=== PATIENT | female | born 1960 | race African-American/Black ===

== ENCOUNTER 2017-02-18 13:51 | Emergency (ER) | payer MEDICAID ==
[2017-02-18] MEDS ORDERED: IPRATROPIUM/ALBUTEROL 0.5-2.5 MG/3 ML AMPUL NEB ONE (14:24)
--- NOTE | 2017-02-18 14:26 | ER Document Report ---
ED Medical Screen (RME) - General Chief Complaint: Asthma Exacerbation Stated Complaint: POSSIBLE ASTHMA ATTACH Time Seen by Provider: 02/18/17 14:24 Notes: Patient says that she has been wheezing since yesterday. Says she developed a cough with some chest pains in the past day or 2. Also has had a sore throat. Fever yesterday. Has had chills as well. Patient has a history of asthma and uses an inhaler, but it ran out yesterday. She does have a cough productive of white phlegm. General body aches. Patient is a cigarette smoker. TRAVEL OUTSIDE OF THE [place] IN LAST 30 DAYS: No - Related Data Allergies/Adverse Reactions: Penicillins Allergy (Verified 02/18/17 14:05) Past Medical History - Social History Chew tobacco use (# tins/day): No Frequency of alcohol use: Occasional Drug Abuse: None Pulmonary Medical History: Reports: Hx Asthma, Hx Bronchitis Renal/ Medical History: Denies: Hx Peritoneal Dialysis Psychiatric Medical History: Reports: Hx Bipolar Disorder, Hx Depression, Hx Schizophrenia Traumatic Medical History: Reports: Hx Fractures - LEFT ELBOW Past Surgical History: Reports: Hx Orthopedic Surgery - Left elbow (pin placed) - Immunizations Hx Diphtheria, Pertussis, Tetanus Vaccination: Yes Physical Exam - Vital signs Vitals: Temp Pulse Resp Pulse Ox 97.7 F 102 H 18 98 02/18/17 14:05 02/18/17 14:05 02/18/17 14:05 02/18/17 14:05 Course - Vital Signs Vital signs: Temp Pulse Resp BP Pulse Ox 97.7 F 102 H 18 98 02/18/17 14:05 02/18/17 14:05 02/18/17 14:05 02/18/17 14:05
--- NOTE | 2017-02-18 15:21 | RADIOLOGY REPORT (SQ) ---
EXAM DESCRIPTION: CHEST PA/LAT COMPLETED DATE/TIME: 02/18/2017 2:59 pm REASON FOR STUDY: Cough, congestion, and wheezing COMPARISON: Chest films 09/21/2012, 05/07/2013 EXAM PARAMETERS: NUMBER OF VIEWS: two views TECHNIQUE: Digital Frontal and Lateral radiographic views of the chest acquired. RADIATION DOSE: NA LIMITATIONS: none FINDINGS: LUNGS AND PLEURA: Chronic lingular scarring or atelectasis. Lungs are otherwise well inflated and clear. No pleural effusion. No pneumothorax. MEDIASTINUM AND HILAR STRUCTURES: No masses or contour abnormalities. HEART AND VASCULAR STRUCTURES: Heart normal size. No evidence for failure. BONES: No acute findings. HARDWARE: None in the chest. OTHER: No other significant finding. IMPRESSION: Stable lingular scarring or atelectasis. TECHNICAL DOCUMENTATION: JOB ID: [id number] [email or web address]- All Rights Reserved
[2017-02-18] MEDS ORDERED: ALBUTEROL SULFATE 0.083% NEB 2.5 MG/3 ML AMPUL NEB ONE (15:39)
[2017-02-18] MEDS ORDERED: AZITHROMYCIN 250 MG TABLET PO ONE (16:13)
[2017-02-18] MEDS ORDERED: PREDNISONE 20 MG TABLET PO ONE (16:13)
[2017-02-18] MEDS ORDERED: ALBUTEROL SULFATE HFA (90 MCG/PUFF) 8 GM MDI (1 MDI/ER DISP) IH ONE (16:45)
--- NOTE | 2017-02-18 16:47 | ER Document Report ---
ED General - General Chief Complaint: Asthma Exacerbation Stated Complaint: POSSIBLE ASTHMA ATTACH Time Seen by Provider: 02/18/17 14:24 TRAVEL OUTSIDE OF THE [place] IN LAST 30 DAYS: No - HPI Patient complains to provider of: Shortness of breath Notes: Patient coming in for last few days shortness breath. Patient states she continues to smoke. Patient states he has a history of asthma. Denies any recent travel states productive sputum. Upon my evaluation patient received a breathing treatment in triage states that she still feels short of breath. Patient otherwise does not look to be in any respiratory distress upon my evaluation. - Related Data Allergies/Adverse Reactions: Penicillins Allergy (Verified 02/18/17 14:05) Past Medical History - Social History Smoking Status: Current Every Day Smoker Chew tobacco use (# tins/day): No Frequency of alcohol use: Occasional Drug Abuse: None Family History: Reviewed & Not Pertinent Patient has suicidal ideation: No Patient has homicidal ideation: No Pulmonary Medical History: Reports: Hx Asthma, Hx Bronchitis Renal/ Medical History: Denies: Hx Peritoneal Dialysis Psychiatric Medical History: Reports: Hx Bipolar Disorder, Hx Depression, Hx Schizophrenia Traumatic Medical History: Reports: Hx Fractures - LEFT ELBOW Past Surgical History: Reports: Hx Orthopedic Surgery - Left elbow (pin placed) - Immunizations Hx Diphtheria, Pertussis, Tetanus Vaccination: Yes Hx Pneumococcal Vaccination: 03/26/03 Review of Systems - Review of Systems Constitutional: No symptoms reported EENT: No symptoms reported Cardiovascular: No symptoms reported Respiratory: Cough, Short of breath, Wheezing Gastrointestinal: No symptoms reported Genitourinary: No symptoms reported Female Genitourinary: No symptoms reported Musculoskeletal: No symptoms reported Skin: No symptoms reported Hematologic/Lymphatic: No symptoms reported Neurological/Psychological: No symptoms reported -: Yes All other systems reviewed and negative Physical Exam - Vital signs Vitals: Temp Pulse Resp Pulse Ox 97.7 F 102 H 18 98 02/18/17 14:05 02/18/17 14:05 02/18/17 14:05 02/18/17 14:05 Interpretation: Normal - General General appearance: Appears well, Alert - HEENT Head: Normocephalic, Atraumatic Eyes: Normal Pupils: PERRL - Respiratory Respiratory status: No respiratory distress Chest status: Nontender Breath sounds: Rhonchi, Wheezing Chest palpation: Normal - Cardiovascular Rhythm: Regular Heart sounds: Normal auscultation Murmur: No - Abdominal Inspection: Normal Distension: No distension Bowel sounds: Normal Tenderness: Nontender Organomegaly: No organomegaly - Back Back: Normal, Nontender - Extremities General upper extremity: Normal inspection, Nontender, Normal color, Normal ROM , Normal temperature General lower extremity: Normal inspection, Nontender, Normal color, Normal ROM , Normal temperature, Normal weight bearing. No: Paola's sign - Neurological Neuro grossly intact: Yes Cognition: Normal Orientation: AAOx4 [place] Coma Scale Eye Opening: Spontaneous [place]ora Coma Scale Verbal: Oriented Dora Coma Scale Motor: Obeys Commands Dora Coma Scale Total: 15 Speech: Normal Motor strength normal: LUE, RUE, LLE, RLE Sensory: Normal - Psychological Associated symptoms: Normal affect, Normal mood - Skin Skin Temperature: Warm Skin Moisture: Dry Skin Color: Normal Course - Re-evaluation Re-evalutation: 02/18/17 18:41 Patient more likely has underlying bronchitis. Patient will be given Z-Garret steroids bronchodilators. Patient will be discharged on follow-up with primary care physician. At the last treatment patient states she does feel better and agrees and is pleased that she is be discharged home. - Vital Signs Vital signs: Temp Pulse Resp BP Pulse Ox 98.4 F 106 H 18 144/92 H 91 L 02/18/17 16:51 02/18/17 16:51 02/18/17 14:05 02/18/17 16:51 02/18/17 16:51 Discharge - Discharge Clinical Impression: Bronchitis Condition: Good Disposition: HOME, SELF-CARE Instructions: Bronchitis With Bronchospasm (Wheezing) (OM), Stop Smoking (OM) Additional Instructions: Use the inhaler that we gave you here in ER 2 puffs every 4 hours. Please take other medications as prescribed. He will not need any more steroids are antibiotics until tomorrow. Prescriptions: Albuterol Sulfate [Proair HFA] 1 - 2 puff IH Q4 PRN #1 inhaler PRN Reason: Azithromycin 250 mg PO DAILY #4 tablet Prednisone [Deltasone] 60 mg PO DAILY #24 tablet Forms: Smoking Cessation Education Referrals: ADAMA DÍAZ MD [Primary Care Provider] - Follow up as needed
[2017-02-18 16:53] VITALS: BP 144/92
== END 2017-02-18 16:56 | disposition home or self-care (01) ==
LOC: ER 13:51
DX: J40 Bronchitis, not specified as acute or chronic (principal); F17.200 Nicotine dependence, unspecified, uncomplicated; Z88.0 Allergy status to penicillin
CPT/HCPCS: 94640 ×2; 99285; 87804; 71020; Q0144; J7512; J3490; J7620

== ENCOUNTER 2017-02-20 13:54 | Emergency (ER) | payer MEDICAID ==
[2017-02-20] MEDS ORDERED: PREDNISONE 20 MG TABLET PO ONE (14:07)
[2017-02-20] MEDS ORDERED: ALBUTEROL SULFATE 0.083% NEB 2.5 MG/3 ML AMPUL NEB ONE (14:07)
--- NOTE | 2017-02-20 14:08 | ER Document Report ---
ED Medical Screen (RME) - General Chief Complaint: Shortness Of Breath Stated Complaint: DIFFICULTY BREATHING,CHEST CONGESTION Time Seen by Provider: 02/20/17 14:07 Notes: Patient states she was seen here 2 days ago. She states at that time a chest x- ray was done and a flu test were done. She states they were both unremarkable. She states she was given prescriptions but she does not have the money to fill them. She states she is currently feeling very short of breath. TRAVEL OUTSIDE OF THE [place] IN LAST 30 DAYS: No - Related Data Allergies/Adverse Reactions: Penicillins Allergy (Verified 02/20/17 13:57) Past Medical History - Social History Chew tobacco use (# tins/day): No Frequency of alcohol use: Occasional Drug Abuse: None Pulmonary Medical History: Reports: Hx Asthma, Hx Bronchitis Renal/ Medical History: Denies: Hx Peritoneal Dialysis Psychiatric Medical History: Reports: Hx Bipolar Disorder, Hx Depression, Hx Schizophrenia Traumatic Medical History: Reports: Hx Fractures - LEFT ELBOW Past Surgical History: Reports: Hx Orthopedic Surgery - Left elbow (pin placed) - Immunizations Hx Diphtheria, Pertussis, Tetanus Vaccination: Yes Physical Exam - Vital signs Vitals: Temp Pulse Resp BP Pulse Ox 97.3 F 88 32 H 115/79 97 02/20/17 13:57 02/20/17 13:57 02/20/17 13:57 02/20/17 13:57 02/20/17 13:57 Course - Vital Signs Vital signs: Temp Pulse Resp BP Pulse Ox 97.3 F 88 32 H 115/79 97 02/20/17 13:57 02/20/17 13:57 02/20/17 13:57 02/20/17 13:57 02/20/17 13:57
[2017-02-20] MEDS ORDERED: IPRATROPIUM/ALBUTEROL 0.5-2.5 MG/3 ML AMPUL NEB ONE (14:56)
[2017-02-20] MEDS ORDERED: DEXAMETHASONE SOD PHOS INJ 10 MG/1 ML VIAL IM ONE (15:00)
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
[2017-02-20] MEDS ORDERED: ALBUTEROL SULFATE HFA (90 MCG/PUFF) 8 GM MDI (1 MDI/ER DISP) IH SCH (15:45)
[2017-02-20 16:31] VITALS: BP 128/93
== END 2017-02-20 16:25 | disposition home or self-care (01) ==
LOC: ER 13:54
DX: J45.901 Unspecified asthma with (acute) exacerbation (principal); T38.0X6A Underdosing of glucocorticoids and synthetic analogues, initial encounter; Z91.120 Patient's intentional underdosing of medication regimen due to financial hardship; Z91.14 Patient's other noncompliance with medication regimen; F17.200 Nicotine dependence, unspecified, uncomplicated; R06.02 Shortness of breath; R05 Cough; Z88.0 Allergy status to penicillin
CPT/HCPCS: 94640 ×2; 99284; 96372; J7512; J1100; J3490; J7620

== ENCOUNTER 2017-07-13 10:27 | Emergency (ER) | payer OTHER, MEDICAID ==
[2017-07-13] MEDS ORDERED: DEXAMETHASONE SOD PHOS INJ 10 MG/1 ML VIAL IM ONE (11:17)
[2017-07-13] MEDS ORDERED: KETOROLAC TROMETHAMINE INJ/PF 30 MG/1 ML SDV IM ONE (11:17)
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
[2017-07-13 12:54] VITALS: BP 136/87
== END 2017-07-13 12:53 | disposition home or self-care (01) ==
LOC: ER 10:27
DX: S16.1XXA Strain of muscle, fascia and tendon at neck level, initial encounter (principal); M51.36 Other intervertebral disc degeneration, lumbar region; M50.30 Other cervical disc degeneration, unspecified cervical region; S09.90XA Unspecified injury of head, initial encounter; M54.9 Dorsalgia, unspecified; R51 Headache; V73.6XXA Passenger on bus injured in collision with car, pick-up truck or van in traffic accident, initial encounter; F17.210 Nicotine dependence, cigarettes, uncomplicated
CPT/HCPCS: 99406; 99284; 96372; 73564; 72110; 72070; 70450; 72125; J1885; J1100

== ENCOUNTER 2017-08-05 10:32 | Emergency (ER) | payer MEDICAID, OTHER ==
[2017-08-05 10:37] VITALS: BP 114/80
[2017-08-05] MEDS ORDERED: DEXAMETHASONE SOD PHOS INJ 10 MG/1 ML VIAL IM ONE (11:27)
[2017-08-05] MEDS ORDERED: KETOROLAC TROMETHAMINE INJ/PF 30 MG/1 ML SDV IM ONE (11:27)
--- NOTE | 2017-08-05 11:32 | ER Document Report ---
ED Extremity Problem, Lower - General Chief Complaint: Foot Pain Stated Complaint: FOOT PAIN Time Seen by Provider: 08/05/17 11:26 Mode of Arrival: Ambulatory Information source: Patient Notes: 57-year-old female presents to ED for complaint of pain and burning to both feet. She states she believes she has heel spurs in both feet. She states she has been to the form worker and they did nothing for her. She states she needs steroid shots in both feet. She denies history of diabetes or peripheral neuropathy. He is alert and oriented speaking in even clear voice is able to ambulate with a even steady gait. TRAVEL OUTSIDE OF THE [place] IN LAST 30 DAYS: No - HPI Patient complains to provider of: Pain Location: Foot Occurred: Other - Chronic getting worse Onset/Duration: Persistent Quality of pain: Burning, Sharp Severity: Severe Pain Level: 5 Recent injury: No Associated symptoms: Painful ambulation Exacerbated by: Movement, Walking Relieved by: Elevation, Rest - Related Data Allergies/Adverse Reactions: Penicillins Allergy (Verified 02/20/17 13:57) Past Medical History - General Information source: Patient - Social History Smoking Status: Current Every Day Smoker Cigarette use (# per day): Yes - One half pack per day Chew tobacco use (# tins/day): No Smoking Education Provided: Yes - 4 minutes Frequency of alcohol use: Occasional Drug Abuse: None 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 Lives with: Parents Family History: Reviewed & Not Pertinent Patient has suicidal ideation: No Patient has homicidal ideation: No Pulmonary Medical History: Reports: Hx Asthma, Hx Bronchitis EENT Medical History: Reports: None Neurological Medical History: Reports: None Endocrine Medical History: Reports: None Renal/ Medical History: Reports: None Malignancy Medical History: Reports: None GI Medical History: Reports: None Musculoskeltal Medical History: Reports Hx Arthritis, Reports Hx Musculoskeletal Deformity, Reports Hx Musculoskeletal Trauma Psychiatric Medical History: Reports: Hx Bipolar Disorder, Hx Depression, Hx Schizophrenia Traumatic Medical History: Reports: Hx Fractures - LEFT ELBOW Past Surgical History: Reports: Hx Orthopedic Surgery - Left elbow (pin placed) - Immunizations Hx Diphtheria, Pertussis, Tetanus Vaccination: Yes Hx Pneumococcal Vaccination: 03/26/03 Review of Systems - Review of Systems Constitutional: No symptoms reported EENT: No symptoms reported Cardiovascular: No symptoms reported Respiratory: No symptoms reported Gastrointestinal: No symptoms reported Genitourinary: No symptoms reported Female Genitourinary: No symptoms reported Musculoskeletal: Other - Bilateral feet pain burning sharp Skin: No symptoms reported Hematologic/Lymphatic: No symptoms reported Neurological/Psychological: No symptoms reported -: Yes All other systems reviewed and negative Physical Exam - Vital signs Vitals: Temp Pulse Resp BP Pulse Ox 98.3 F 98 20 114/80 97 08/05/17 10:37 08/05/17 10:37 08/05/17 10:37 08/05/17 10:37 08/05/17 10:37 Interpretation: Normal - General General appearance: Appears well, Alert - HEENT Head: Normocephalic, Atraumatic Eyes: Normal Pupils: PERRL - Respiratory Respiratory status: No respiratory distress Chest status: Nontender Breath sounds: Normal Chest palpation: Normal - Cardiovascular Rhythm: Regular Heart sounds: Normal auscultation Murmur: No - Abdominal Inspection: Normal Distension: No distension Bowel sounds: Normal Tenderness: Nontender Organomegaly: No organomegaly - Back Back: Normal, Nontender - Extremities General upper extremity: Normal inspection, Nontender, Normal color, Normal ROM , Normal temperature General lower extremity: Normal inspection, Normal color, Normal ROM, Normal temperature. No: Paola's sign Foot: Tender - heels, No evidence of FB. No: Abrasion, Edema, Instability, Laceration, Metatarsal compress. pain, Nail injury, Navicular tenderness, Unable to bear weight - Painful ambulation - Neurological Neuro grossly intact: Yes Cognition: Normal Orientation: AAOx4 Dora Coma Scale Eye Opening: Spontaneous [place] Coma Scale Verbal: Oriented [place] Coma Scale Motor: Obeys Commands [place] Coma Scale Total: 15 Speech: Normal Motor strength normal: LUE, RUE, LLE, RLE Sensory: Normal - Psychological Associated symptoms: Normal affect, Normal mood - Skin Skin Temperature: Warm Skin Moisture: Dry Skin Color: Normal Course - Re-evaluation Re-evalutation: 08/05/17 15:46 Patient was treated with Toradol Decadron for her bilateral heel spurs. She was instructed to follow-up with the form worker. She was also given foot exercises and instructions concerning heel spurs. Patient verbalized understanding of instructions and agreement with treatment plan. - Vital Signs Vital signs: Temp Pulse Resp BP Pulse Ox 98.3 F 98 20 114/80 97 08/05/17 10:37 08/05/17 10:37 08/05/17 10:37 08/05/17 10:37 08/05/17 10:37 - Diagnostic Test Radiology reviewed: Image reviewed, Reports reviewed Discharge - Discharge Clinical Impression: Heel spur Qualifiers: Laterality: unspecified laterality Qualified Code(s): M77.30 - Calcaneal spur, unspecified foot Condition: Stable Disposition: HOME, SELF-CARE Additional Instructions: Plantar Fasciitis or Heel Spur Plantar fasciitis is an inflammation of a ligament on the underside of the foot. It can be caused by injury, overuse such as running, or poorly fitting shoes. There may be a bone spur on the heel if inflammation has persisted a long time. Plantar fasciitis is treated with stretching exercises and antiinflammatory medicine. More severe cases may require injection of cortisone. It may take several weeks to get better. If nothing gives relief, an operation to remove the heel spur may help. Call or return if there is redness, increasing pain, swelling, fever, or any other new symptoms. Exercises for the Foot Muscles Stretching and strengthening of the foot muscles is an important part of recovery from injury, as well as in treatment and prevention of overuse syndromes like plantar fasciitis. TOWEL CURLS: Put your foot on a dry towel. Curl your toes to pick it up, then drop it. As it becomes easier, use a heavier towel. Repeat 20 times, twice daily. AYALA CURLS: Lift and turn your knee, so your foot is against the opposite leg about mid-ayala. Try to "grab" the entire ayala bone with your toes, while moving your foot up and down the leg for one minute. Repeat twice daily. TOE LIFTS: Put your opposite foot over your 2nd to 5th toes. Now lift the toes up, pushing the other foot upward. Repeat 10 times, twice daily. Repeat using the large toe. EVERSIONS: Cross the opposite foot over, placing the heel just behind the 4th and 5th toes. Try to lift up the outside of the bottom foot. Hold 10 seconds. Repeat twice daily. Anti-Inflammatory Medication You have received a prescription for an antiinflammatory agent. This is an excellent, safe drug for pain control. In addition, it has potent antiinflammatory effects which are beneficial, especially in the treatment of injuries, arthritis, or tendonitis. It's best to take this medicine with food. Persons with ulcer disease or allergy to aspirin should notify their physician of this before taking this drug. Take the medication exactly as prescribed. Don't take additional doses unless instructed to do so by your doctor. If you develop wheezing, shortness of breath, hives, faintness, stomach pain, vomiting, or dark black stools, return for re-evaluation at once. FOLLOW-UP CARE: If you have been referred to a physician for follow-up care, call the physician s office for an appointment as you were instructed or within the next two days. If you experience worsening or a significant change in your symptoms, notify the physician immediately or return to the Emergency Department at any time for re-evaluation. Prescriptions: Naproxen 500 mg PO BIDP PRN #14 tablet PRN Reason: Forms: Return to Work Referrals: JUANITO MCGOVERN MD [ACTIVE STAFF] - Follow up as needed JASIEL MCLEAN DPM [ACTIVE STAFF] - Follow up as needed
--- NOTE | 2017-08-05 11:38 | RADIOLOGY REPORT (SQ) ---
EXAM DESCRIPTION: FOOT BILATERAL 3 VIEWS COMPLETED DATE/TIME: 08/05/2017 11:25 am REASON FOR STUDY: pain and buring COMPARISON: None. NUMBER OF VIEWS: Three views. TECHNIQUE: AP, lateral and oblique radiographic images acquired of the right and left foot. LIMITATIONS: None. FINDINGS: MINERALIZATION: Normal. BONES: No acute fracture or dislocation. No worrisome bone lesions. Bilateral hallux valgus. Old h ealed stress fracture or right 2nd metatarsal. Bilateral plantar calcaneal spurring. JOINTS: No effusions. SOFT TISSUES: No soft tissue swelling. No foreign body. OTHER: No other significant finding. IMPRESSION: BILATERAL HALLUX VALGUS AND CALCANEAL SPURRING. OLD HEALED STRESS FRACTURE RIGHT 2ND ME TATARSAL. NO ACUTE OSSEOUS ABNORMALITY IDENTIFIED. TECHNICAL DOCUMENTATION: JOB ID: [id number] [employer]- All Rights Reserved Reading location - IP/workstation name: [email or web address]
== END 2017-08-05 11:51 | disposition home or self-care (01) ==
LOC: ER 10:32
DX: M77.30 Calcaneal spur, unspecified foot (principal); F17.210 Nicotine dependence, cigarettes, uncomplicated; Z88.0 Allergy status to penicillin
CPT/HCPCS: 99406; 99283; 96372; 73630; J1885; J1100

== ENCOUNTER 2017-10-08 21:01 | Emergency (ER) | payer MEDICAID ==
--- NOTE | 2017-10-08 21:42 | RADIOLOGY REPORT (SQ) ---
EXAM DESCRIPTION: FOOT LEFT COMPLETE COMPLETED DATE/TIME: 10/08/2017 9:29 pm REASON FOR STUDY: Pain when walking COMPARISON: None. NUMBER OF VIEWS: Three views. TECHNIQUE: AP, lateral and oblique radiographic images acquired of the left foot. LIMITATIONS: None. FINDINGS: MINERALIZATION: Normal. BONES: No acute fracture. Hallux valgus. JOINTS: No effusions. SOFT TISSUES: No soft tissue swelling. No foreign body. OTHER: No other significant finding. IMPRESSION: NEGATIVE STUDY OF THE LEFT FOOT. NO RADIOGRAPHIC EVIDENCE OF ACUTE INJURY. TECHNICAL DOCUMENTATION: JOB ID: [id number] [employer]- All Rights Reserved Reading location - IP/workstation name: [email or web address]
--- NOTE | 2017-10-08 21:43 | RADIOLOGY REPORT (SQ) ---
EXAM DESCRIPTION: FOOT RIGHT COMPLETE COMPLETED DATE/TIME: 10/08/2017 9:29 pm REASON FOR STUDY: PAIN WHEN WALKING COMPARISON: None. NUMBER OF VIEWS: Three views. TECHNIQUE: AP, lateral and oblique radiographic images acquired of the right foot. LIMITATIONS: None. FINDINGS: MINERALIZATION: Normal. BONES: No acute fracture. Hallux valgus. JOINTS: No effusions. SOFT TISSUES: No soft tissue swelling. No foreign body. OTHER: No other significant finding. IMPRESSION: NEGATIVE STUDY OF THE RIGHT FOOT. NO RADIOGRAPHIC EVIDENCE OF ACUTE INJURY. TECHNICAL DOCUMENTATION: JOB ID: [id number] [employer] All Rights Reserved Reading location - IP/workstation name: [email or web address]
[2017-10-08] MEDS ORDERED: PREDNISONE 20 MG TABLET PO ONE (22:52)
--- NOTE | 2017-10-08 22:53 | ER Document Report ---
ED General - General Chief Complaint: Foot Pain Stated Complaint: FOOT AND EAR PAIN TRAVEL OUTSIDE OF THE [place] IN LAST 30 DAYS: No - HPI Notes: 57-year-old female presents with bilateral foot pain. Of note, this been ongoing for the last several months. She states she has heel spurs and wants an injection of a steroid she got back in July as well as some pain medicine. She chronically takes Percocet and gabapentin for chronic pain elsewhere. She denies any new injury, she states she is tired of it is worse today. May been on her feet more normal. Throbbing, burning, nonradiating. No other modifying factors, no other associated symptoms, no other provocative or palliative factors. - Related Data Allergies/Adverse Reactions: Penicillins Allergy (Verified 02/20/17 13:57) Past Medical History - Social History Smoking Status: Smoker,Current Status Unk Family History: Reviewed & Not Pertinent Patient has suicidal ideation: No Patient has homicidal ideation: No - Medical History Notes: Includes chronic pain, "heel spurs" Pulmonary Medical History: Reports: Hx Asthma, Hx Bronchitis Renal/ Medical History: Denies: Hx Peritoneal Dialysis Musculoskeletal Medical History: Reports Hx Arthritis, Reports Hx Musculoskeletal Deformity, Reports Hx Musculoskeletal Trauma Psychiatric Medical History: Reports: Hx Bipolar Disorder, Hx Depression, Hx Schizophrenia Traumatic Medical History: Reports: Hx Fractures - LEFT ELBOW Past Surgical History: Reports: Hx Orthopedic Surgery - Left elbow (pin placed) - Immunizations Hx Diphtheria, Pertussis, Tetanus Vaccination: Yes Hx Pneumococcal Vaccination: 03/26/03 Review of Systems - Review of Systems Notes: Review of systems as in history of present illness, otherwise no significant headache, chest pain, abdominal pain. Physical Exam - Vital signs Vitals: Temp Pulse Resp BP Pulse Ox 97.5 F 105 H 18 129/83 H 97 10/08/17 21:07 10/08/17 21:07 10/08/17 21:07 10/08/17 21:07 10/08/17 21:07 - Notes Notes: General: Well devloped, no acute distress. HEENT: Normocephalic, atraumatic. Pupils equal round reactive to light. Mucosa moist. No JVD. Chest: No trauma, normal excursion. Respiratory: Good air exchange, normal excursion. Cardiac: Regular rhythm Abdomen: Soft, benign. Nondistended. Back: No asymmetry or gross abnormality. Motor: Grossly normal power and tone. Neurologic: Alert, nonfocal. Vascular: Well perfused Skin: No petechiae or purpura Feet show no erythema edema or warmth. Mild hyperesthesia Course - Re-evaluation Re-evalutation: 10/08/17 22:55 Appearing female with acute on chronic pain. No history of diabetes. May have an element of neuropathy. At this point I will give her an oral dose of prednisone at her request, she will continue to take her analgesics at home and follow-up with podiatry. Of note, x-rays ordered prior to my evaluation are reviewed and are both unremarkable. - Vital Signs Vital signs: Temp Pulse Resp BP Pulse Ox 97.5 F 105 H 18 129/83 H 97 10/08/17 21:07 10/08/17 21:07 10/08/17 21:07 10/08/17 21:07 10/08/17 21:07 Discharge - Discharge Clinical Impression: Foot pain, bilateral Condition: Good Disposition: HOME, SELF-CARE Instructions: Chronic Pain Control ([facility]) Referrals: ADAMA DÍAZ MD [Primary Care Provider] - Follow up as needed
[2017-10-08 22:58] VITALS: BP 134/88
== END 2017-10-08 23:02 | disposition home or self-care (01) ==
LOC: ER 21:01
DX: M79.671 Pain in right foot (principal); M79.672 Pain in left foot; G89.29 Other chronic pain; R20.3 Hyperesthesia; J45.909 Unspecified asthma, uncomplicated; Z79.891 Long term (current) use of opiate analgesic; Z79.899 Other long term (current) drug therapy; Z88.0 Allergy status to penicillin
CPT/HCPCS: 99283; 73630 ×2; J7512

== ENCOUNTER 2017-10-29 14:12 | Emergency (ER) | payer MEDICAID ==
[2017-10-29] MEDS ORDERED: NORMAL SALINE 1000 ML 1,000 ML IV ONE (14:50)
--- NOTE | 2017-10-29 14:52 | ER Document Report ---
ED Medical Screen (RME) - General Chief Complaint: Vomiting Stated Complaint: VOMITING Time Seen by Provider: 10/29/17 14:50 Notes: 57 years old female presents today with mid abdominal pain nausea vomited many times since last Sunday. She drank 2 bottles of liquor and a 6 cans of beer that day. Currently having mid abdominal pain. Moderate in intensity. Denies any diarrhea denies any fevers chills or other constitutional symptoms. TRAVEL OUTSIDE OF THE [place] IN LAST 30 DAYS: No - Related Data Allergies/Adverse Reactions: Penicillins Allergy (Verified 10/29/17 14:13) Past Medical History - Social History Chew tobacco use (# tins/day): No Frequency of alcohol use: Heavy Drug Abuse: None Pulmonary Medical History: Reports: Hx Asthma, Hx Bronchitis Renal/ Medical History: Denies: Hx Peritoneal Dialysis Musculoskeltal Medical History: Reports Hx Arthritis, Reports Hx Musculoskeletal Deformity, Reports Hx Musculoskeletal Trauma Psychiatric Medical History: Reports: Hx Bipolar Disorder, Hx Depression, Hx Schizophrenia Traumatic Medical History: Reports: Hx Fractures - LEFT ELBOW Past Surgical History: Reports: Hx Orthopedic Surgery - Left elbow (pin placed) - Immunizations Hx Diphtheria, Pertussis, Tetanus Vaccination: Yes Physical Exam - Vital signs Vitals: Temp Pulse Resp BP Pulse Ox 98.5 F 99 20 138/89 H 97 10/29/17 14:31 10/29/17 14:31 10/29/17 14:31 10/29/17 14:31 10/29/17 14:31 Course - Vital Signs Vital signs: Temp Pulse Resp BP Pulse Ox 98.5 F 99 20 138/89 H 97 10/29/17 14:31 10/29/17 14:31 10/29/17 14:31 10/29/17 14:31 10/29/17 14:31 Doctor's Discharge - Discharge Referrals: ADAMA DÍAZ MD [Primary Care Provider] - Follow up as needed
[2017-10-29 16:48] LABS: ABSOLUTE BASOPHILS # (AUTO) 0.1 10^3/uL (0.0-0.2); ABSOLUTE EOSINOPHILS # (AUTO) 0.1 10^3/uL (0.0-0.6); ABSOLUTE LYMPHOCYTES (AUTO) 1.2 10^3/uL (0.5-4.7); ABSOLUTE MONOCYTES (AUTO) 0.6 10^3/uL (0.1-1.4); ABSOLUTE NEUT (AUTO) 5.1 10^3/uL (1.7-8.2); BASOPHILS % (AUTO) 0.7 % (0-2); EOSINOPHILS % (AUTO) 1.1 % (0-6); HEMATOCRIT 44.9 % (36.0-47.0); HEMOGLOBIN 15.1 g/dL (12.0-15.5); LYMPHOCYTES % (AUTO) 17.5 % (13-45); MEAN CORPUSCULAR HEMOGLOBIN 28.7 pg (27.0-33.4); MEAN CORPUSCULAR HGB CONC 33.7 g/dL (32.0-36.0); MEAN CORPUSCULAR VOLUME 85 fl (80-97); MONOCYTES % (AUTO) 8.1 % (3-13); PLATELET COUNT 172 10^3/uL (150-450); RED BLOOD COUNT 5.27 10^6/uL (3.72-5.28); SEGMENTED NEUTROPHILS % (AUTO) 72.6 % (42-78); TOTAL CELLS COUNTED % (AUTO) 100 %
[2017-10-29 17:03] LABS: ALANINE AMINOTRANSFERASE 25 U/L (9-52); ALBUMIN 3.8 g/dL (3.5-5.0); ALKALINE PHOSPHATASE 103 U/L (38-126); ANION GAP 12 (5-19); ASPARTATE AMINO TRANSFERASE 22 U/L (14-36); BILIRUBIN,DIRECT 0.3 mg/dL (0.0-0.4); BILIRUBIN,TOTAL 0.5 mg/dL (0.2-1.3); BLOOD UREA NITROGEN 14 mg/dL (7-20); CALCIUM 8.9 mg/dL (8.4-10.2); CARBON DIOXIDE 21 mmol/L (22-30); CHLORIDE 109 mmol/L (98-107); GLUCOSE 89 mg/dL (75-110); LIPASE 182.9 U/L (23-300); POTASSIUM 3.7 mmol/L (3.6-5.0); SODIUM 141.6 mmol/L (137-145); TOTAL PROTEIN 7.1 g/dL (6.3-8.2)
[2017-10-29 18:45] LABS: AMORPHOUS SEDIMENT,URINE TRACE /HPF; APPEARANCE,URINE SLIGHTLY-CLOUDY; BILIRUBIN,URINE NEGATIVE (NEGATIVE); COLOR,URINE YELLOW; GLUCOSE, URINE NEGATIVE (NEGATIVE); KETONES,URINE NEGATIVE (NEGATIVE); LEUKOCYTE ESTERASE,URINE NEGATIVE (NEGATIVE); NITRITE,URINE NEGATIVE (NEGATIVE); PROTEIN,URINE NEGATIVE (NEGATIVE); URINE SPECIFIC GRAVITY 1.019; UROBILINOGEN,URINE NEGATIVE mg/dL (<2.0)
--- NOTE | 2017-10-29 19:29 | RADIOLOGY REPORT (SQ) ---
EXAM DESCRIPTION: U/S ABDOMEN LIMITED W/O DOP COMPLETED DATE/TIME: 10/29/2017 7:10 pm REASON FOR STUDY: upper abd pain, vomiting COMPARISON: None. TECHNIQUE: Dynamic and static grayscale images acquired of the abdomen and recorded on PACS. Additio jeffry selected color Doppler and spectral images recorded. LIMITATIONS: None. FINDINGS: PANCREAS: No masses. Visualized pancreatic duct normal caliber. LIVER: 12.1 cm. No masses. Normal echotexture. LIVER VASCULATURE: Normal directional flow of the main portal vein and hepatic veins. GALLBLADDER: No stones. Normal wall thickness. No pericholecystic fluid. ULTRASOUND-DETECTED AL'S SIGN: Negative. INTRAHEPATIC DUCTS AND COMMON DUCT: CBD and intrahepatic ducts normal caliber. No filling defects. INFERIOR VENA CAVA: Normal flow. AORTA: No aneurysm. RIGHT KIDNEY: Normal size, 12.5 cm. Normal echogenicity. No solid or suspicious masses. No hydroneph rosis. No calcifications. PERITONEAL AND RIGHT PLEURAL SPACE: No ascites or effusions. OTHER: No other significant findings. IMPRESSION: NORMAL RIGHT UPPER QUADRANT ULTRASOUND. TECHNICAL DOCUMENTATION: JOB ID: [id number] [employer]- All Rights Reserved Reading location - IP/workstation name: [email or web address]
--- NOTE | 2017-10-29 19:38 | ER Document Report ---
ED GI/ - General Chief Complaint: Vomiting Stated Complaint: VOMITING Time Seen by Provider: 10/29/17 14:50 Mode of Arrival: Ambulatory Information source: Patient Notes: Patient presents with a 2 day history of abdominal pain that has been off and on. Patient states that she had drank heavily 2 days ago drinking 2/5 of alcohol as well as 5 beers and that her pain symptoms started after drinking the alcohol. Patient denies any diarrhea. Patient states that she had vomited once. Patient reports normal appetite. No fever. Patient has had recent sick contacts. Patient presently denies any nausea or abdominal pain symptoms. TRAVEL OUTSIDE OF THE [place] IN LAST 30 DAYS: No - HPI Patient complains to provider of: Abdominal pain, Vomiting Onset: Other - 2 days Timing/Duration: Gone Quality of pain: No pain Severity at maximum: Moderate Pain Level: Denies Location: Epigastric, LUQ, RUQ Vaginal bleeding (Compared to normal period): None Associated symptoms: Nausea, Vomiting. denies: Blood in emesis, Blood in stool , Constipation, Loss of appetite, Urinary hesitancy, Urinary frequency, Urinary retention, Urinary urgency Exacerbated by: Food Relieved by: Denies Similar symptoms previously: No Recently seen / treated by doctor: No - Related Data Allergies/Adverse Reactions: Penicillins Allergy (Verified 10/29/17 14:13) Past Medical History - General Information source: Patient - Social History Smoking Status: Current Every Day Smoker Chew tobacco use (# tins/day): No Smoking Education Provided: Yes Frequency of alcohol use: Heavy Drug Abuse: None Occupation: None Lives with: Family Family History: Reviewed & Not Pertinent Patient has suicidal ideation: No Patient has homicidal ideation: No Pulmonary Medical History: Reports: Hx Asthma, Hx Bronchitis Renal/ Medical History: Denies: Hx Peritoneal Dialysis Musculoskeletal Medical History: Reports Hx Arthritis, Reports Hx Musculoskeletal Deformity, Reports Hx Musculoskeletal Trauma Psychiatric Medical History: Reports: Hx Bipolar Disorder, Hx Depression, Hx Schizophrenia Traumatic Medical History: Reports: Hx Fractures - LEFT ELBOW Infectious Medical History: Reports: Hx HIV - Patient denies a history of HIV, although is on HIV medications Past Surgical History: Reports: Hx Orthopedic Surgery - Left elbow (pin placed) - Immunizations Hx Diphtheria, Pertussis, Tetanus Vaccination: Yes Hx Pneumococcal Vaccination: 03/26/03 Review of Systems - Review of Systems Constitutional: No symptoms reported. denies: Fever, Recent illness EENT: No symptoms reported Cardiovascular: No symptoms reported. denies: Chest pain Respiratory: No symptoms reported Gastrointestinal: Abdominal pain - Now resolved, Nausea, Vomiting. denies: Constipation, Poor appetite Genitourinary: No symptoms reported Female Genitourinary: No symptoms reported Musculoskeletal: No symptoms reported Skin: No symptoms reported Hematologic/Lymphatic: No symptoms reported Neurological/Psychological: No symptoms reported Physical Exam - Vital signs Vitals: Temp Pulse Resp BP Pulse Ox 98.5 F 99 20 138/89 H 97 10/29/17 14:31 10/29/17 14:31 10/29/17 14:31 10/29/17 14:31 10/29/17 14:31 - General General appearance: Appears well, Alert In distress: None - HEENT Head: Normocephalic, Atraumatic Eyes: Normal Conjunctiva: Normal Ears: Normal External canal: Normal Tympanic membrane: Normal Nasal: Normal Mouth/Lips: Normal Mucous membranes: Normal Pharynx: Normal Neck: Normal, Supple. No: Lymphadenopathy - Respiratory Respiratory status: No respiratory distress Chest status: Nontender Breath sounds: Normal Chest palpation: Normal - Cardiovascular Rhythm: Regular Heart sounds: S1 appreciated, S2 appreciated Murmur: No - Abdominal Inspection: Normal Distension: No distension Bowel sounds: Normal Tenderness: Nontender - Back Back: Normal, Nontender. No: CVA tenderness - Extremities General upper extremity: Normal inspection, Normal ROM General lower extremity: Normal inspection, Normal ROM - Neurological Neuro grossly intact: Yes Cognition: Normal Dora Coma Scale Eye Opening: Spontaneous [place] Coma Scale Verbal: Oriented [place] Coma Scale Motor: Obeys Commands Dora Coma Scale Total: 15 - Psychological Associated symptoms: Normal affect, Normal mood - Skin Skin Temperature: Warm Skin Moisture: Dry Skin Color: Normal Course - Re-evaluation Re-evalutation: 10/29/17 19:46 Patient states that she does not have any abdominal pain until she eats or drinks something and then her pain is reproduced. Patient presently denies any significant tenderness. Discussed results of patient's tests with her. Patient advised of hematuria noted on urinalysis. Review of patient's previous ER visits does demonstrate that she has had hematuria on previous urinalysis tests. Patient states that she has had occasional flank tenderness. Patient denies any fever or dysuria. Offered patient imaging of the kidneys for further evaluation of hematuria. Patient declines and prefers to follow-up with her primary doctor tomorrow for recheck. 10/29/17 19:47 Patient presents with abdominal pain without signs of peritonitis or other life- threatening or serious etiology. Patient appears stable for discharge and has been instructed to return immediately if the symptoms worsen in any way, or in 8 -12 hours if not improved for reevaluation. The patient has been instructed to return if the symptoms worsen or change in any way. - Vital Signs Vital signs: Temp Pulse Resp BP Pulse Ox 98.5 F 90 18 151/96 H 97 10/29/17 14:31 10/29/17 20:06 10/29/17 20:06 10/29/17 20:06 10/29/17 20:06 - Laboratory Result Diagrams: 10/29/17 16:39 10/29/17 16:39 Laboratory results interpreted by me: 10/29/17 10/29/17 16:39 18:15 Chloride 109 H Carbon Dioxide 21 L Urine Blood MODERATE H 10/29/17 19:47 Labs- Entire Visit 10/29/17 10/29/17 10/29/17 15:40 16:39 16:39 WBC 7.0 RBC 5.27 Hgb 15.1 Hct 44.9 MCV 85 MCH 28.7 MCHC 33.7 RDW 14.0 Plt Count 172 Seg Neutrophils % 72.6 Lymphocytes % 17.5 Monocytes % 8.1 Eosinophils % 1.1 Basophils % 0.7 Absolute Neutrophils 5.1 Absolute Lymphocytes 1.2 Absolute Monocytes 0.6 Absolute Eosinophils 0.1 Absolute Basophils 0.1 Sodium Cancelled 141.6 Potassium Cancelled 3.7 Chloride Cancelled 109 H Carbon Dioxide Cancelled 21 L Anion Gap Cancelled 12 BUN Cancelled 14 Creatinine Cancelled 0.77 Est GFR ( Amer) Cancelled > 60 Est GFR (Non-Af Amer) Cancelled > 60 Glucose Cancelled 89 Calcium Cancelled 8.9 Total Bilirubin Cancelled 0.5 Direct Bilirubin Cancelled 0.3 Neonat Total Bilirubin Cancelled Not Reportable Neonat Direct Bilirubin Cancelled Not Reportable Neonat Indirect Bili Cancelled Not Reportable AST Cancelled 22 ALT Cancelled 25 Alkaline Phosphatase Cancelled 103 Total Protein Cancelled 7.1 Albumin Cancelled 3.8 Lipase Cancelled 182.9 Urine Color Urine Appearance Urine pH Ur Specific [place] Urine Protein Urine Glucose (UA) Urine Ketones Urine Blood Urine Nitrite Urine Bilirubin Urine Urobilinogen Ur Leukocyte Esterase Urine WBC (Auto) Urine RBC (Auto) U Hyaline Cast (Auto) Urine Bacteria (Auto) Squamous Epi Cells Auto Amorphous Sediment Auto Urine Mucus (Auto) Urine Ascorbic Acid 10/29/17 18:15 WBC RBC Hgb Hct MCV MCH MCHC RDW Plt Count Seg Neutrophils % Lymphocytes % Monocytes % Eosinophils % Basophils % Absolute Neutrophils Absolute Lymphocytes Absolute Monocytes Absolute Eosinophils Absolute Basophils Sodium Potassium Chloride Carbon Dioxide Anion Gap BUN Creatinine Est GFR ( Amer) Est GFR (Non-Af Amer) Glucose Calcium Total Bilirubin Direct Bilirubin Neonat Total Bilirubin Neonat Direct Bilirubin Neonat Indirect Bili AST ALT Alkaline Phosphatase Total Protein Albumin Lipase Urine Color YELLOW Urine Appearance SLIGHTLY-CLOUDY Urine pH 5.0 Ur Specific [place] 1.019 Urine Protein NEGATIVE Urine Glucose (UA) NEGATIVE Urine Ketones NEGATIVE Urine Blood MODERATE H Urine Nitrite NEGATIVE Urine Bilirubin NEGATIVE Urine Urobilinogen NEGATIVE Ur Leukocyte Esterase NEGATIVE Urine WBC (Auto) 9 Urine RBC (Auto) 31 U Hyaline Cast (Auto) 4 Urine Bacteria (Auto) TRACE Squamous Epi Cells Auto 5 Amorphous Sediment Auto TRACE Urine Mucus (Auto) OCC Urine Ascorbic Acid NEGATIVE - Diagnostic Test Radiology reviewed: Reports reviewed Discharge - Discharge Clinical Impression: Abdominal pain Qualifiers: Abdominal location: upper abdomen, unspecified Qualified Code(s): R10.10 - Upper abdominal pain, unspecified Nausea & vomiting Qualifiers: Vomiting type: unspecified Vomiting Intractability: non-intractable Qualified Code(s): R11.2 - Nausea with vomiting, unspecified Hematuria Qualifiers: Hematuria type: unspecified type Qualified Code(s): R31.9 - Hematuria, unspecified Condition: Stable Disposition: HOME, SELF-CARE Instructions: Abdominal Pain ([facility]), Antinausea Medication ([facility]), Gastritis ([facility] ), Hematuria ([facility]) Additional Instructions: Return immediately for any new or worsening symptoms Followup with your primary care provider, call tomorrow to make a followup appointment You had red blood cells noted in your urinalysis. Follow-up with your primary doctor for further evaluation of this abnormal finding. Avoid alcohol use as this can contribute to your upper abdominal tenderness. Prescriptions: Omeprazole Magnesium [Prilosec Otc] 20 mg PO DAILY #15 tablet. Ondansetron HCl [Zofran 4 mg Tablet] 1 tab PO Q6 PRN #10 tablet PRN Reason: Sucralfate [Carafate 1 gm Tablet] 1 gm PO ACHS #40 tablet Forms: Smoking Cessation Education Referrals: ADAMA DÍAZ MD [Primary Care Provider] - Follow up tomorrow
[2017-10-29] MEDS ORDERED: MAG HYDROX/AL HYDROX/SIMETH SUSP 30 ML UDCUP PO ONE (19:47)
[2017-10-29] MEDS ORDERED: LIDOCAINE 2% VISCOUS SOLN 20 ML UDCUP PO ONE (19:47)
[2017-10-29 20:08] VITALS: BP 151/96
== END 2017-10-29 20:09 | disposition home or self-care (01) ==
LOC: ER 14:12
DX: R11.2 Nausea with vomiting, unspecified (principal); R10.10 Upper abdominal pain, unspecified; R31.9 Hematuria, unspecified; F17.200 Nicotine dependence, unspecified, uncomplicated; B20 Human immunodeficiency virus [HIV] disease; Z88.0 Allergy status to penicillin
CPT/HCPCS: 99284; 96360; 96361; 36415; 83690; 85025; 80053; 81001; 76705; J3490 ×2; J7030

== ENCOUNTER 2018-01-08 21:24 | Emergency (ER) | payer MEDICAID ==
[2018-01-08] MEDS ORDERED: IPRATROPIUM/ALBUTEROL 0.5-2.5 MG/3 ML AMPUL NEB ONE (22:52)
--- NOTE | 2018-01-08 22:55 | ER Document Report ---
ED Respiratory Problem - General Chief Complaint: Breathing Difficulty Stated Complaint: SHORTNESS OF BREATH,WHEEZING Time Seen by Provider: 01/08/18 22:52 Mode of Arrival: Ambulatory Information source: Patient TRAVEL OUTSIDE OF THE [place] IN LAST 30 DAYS: No - HPI Patient complains to provider of: COPD Onset: Other - 2-3 days Duration: Worse/persistent Quality of pain: Achy Severity: Mild Pain Level: 2 Context: Smoker Short of Breath: Moderate Chest pain/discomfort: Tightness Cough: Productive Sputum amount: Small Sputum color: Yellow Sputum consistency: Mucoid At home treatment: Bronchodilators Associated symptoms: Chills, Congestion, Cough, Fever, Short of breath, Wheezing Similar symptoms previously: Yes Recently seen / treated by doctor: No Notes: Patient is a 57-year-old female presenting to the emergency room today complaining of 2-3-day history of cough with congestion, subjective fever with body aches, cough is productive of yellowish sputum at times, recently exposed to a grandchild who has the flu and is concerned about this, has not yet had a flu vaccination this year, she is a smoker with a history of asthma/COPD - Related Data Allergies/Adverse Reactions: Penicillins Allergy (Verified 10/29/17 14:13) Past Medical History - General Information source: Patient - Social History Smoking Status: Current Some Day Smoker Family History: Reviewed & Not Pertinent Pulmonary Medical History: Reports: Hx Asthma, Hx Bronchitis Renal/ Medical History: Denies: Hx Peritoneal Dialysis Musculoskeletal Medical History: Reports Hx Arthritis, Reports Hx Musculoskeletal Deformity, Reports Hx Musculoskeletal Trauma Psychiatric Medical History: Reports: Hx Bipolar Disorder, Hx Depression, Hx Schizophrenia Traumatic Medical History: Reports: Hx Fractures - LEFT ELBOW Infectious Medical History: Reports: Hx HIV - Patient denies a history of HIV, although is on HIV medications Past Surgical History: Reports: Hx Orthopedic Surgery - Left elbow (pin placed) - Immunizations Hx Diphtheria, Pertussis, Tetanus Vaccination: Yes Hx Pneumococcal Vaccination: 03/26/03 Review of Systems - Review of Systems Constitutional: See HPI EENT: No symptoms reported Cardiovascular: No symptoms reported Respiratory: See HPI Gastrointestinal: No symptoms reported Genitourinary: No symptoms reported Female Genitourinary: No symptoms reported Musculoskeletal: See HPI Skin: No symptoms reported Hematologic/Lymphatic: No symptoms reported Neurological/Psychological: No symptoms reported -: Yes All other systems reviewed and negative Physical Exam - Vital signs Vitals: Temp Pulse Resp BP Pulse Ox 98.0 F 90 18 133/87 H 97 01/08/18 21:33 01/08/18 21:33 01/08/18 21:33 01/08/18 21:33 01/08/18 21:33 Interpretation: Normal - General General appearance: Appears well, Alert - HEENT Head: Normocephalic, Atraumatic Eyes: Normal Pupils: PERRL - Respiratory Respiratory status: No respiratory distress Chest status: Nontender Breath sounds: Productive cough, Rhonchi, Wheezing Chest palpation: Normal - Cardiovascular Rhythm: Regular Heart sounds: Normal auscultation Murmur: No - Abdominal Inspection: Normal Distension: No distension Bowel sounds: Normal Tenderness: Nontender Organomegaly: No organomegaly - Back Back: Normal, Nontender - Extremities General upper extremity: Normal inspection, Nontender, Normal color, Normal ROM , Normal temperature General lower extremity: Normal inspection, Nontender, Normal color, Normal ROM , Normal temperature, Normal weight bearing. No: Paola's sign - Neurological Neuro grossly intact: Yes Cognition: Normal Orientation: AAOx4 [place] Coma Scale Eye Opening: Spontaneous Dora Coma Scale Verbal: Oriented Dora Coma Scale Motor: Obeys Commands [place] Coma Scale Total: 15 Speech: Normal Motor strength normal: LUE, RUE, LLE, RLE Sensory: Normal - Psychological Associated symptoms: Normal affect, Normal mood - Skin Skin Temperature: Warm Skin Moisture: Dry Skin Color: Normal Course - Re-evaluation Re-evalutation: 01/09/18 01:40 Patient resting comfortably with stable vital signs, lab and imaging findings discussed at bedside which are unremarkable, symptoms consistent with viral upper respiratory illness with COPD exacerbation, patient advised to quit smoking, follow-up with primary care or return if symptoms worsen, patient acknowledges understanding and agreement with this plan - Vital Signs Vital signs: Temp Pulse Resp BP Pulse Ox 97.5 F 90 18 133/87 H 100 01/09/18 00:32 01/08/18 21:33 01/08/18 21:33 01/08/18 21:33 01/09/18 00:28 - Laboratory Result Diagrams: 01/09/18 01:00 01/09/18 01:00 Laboratory results interpreted by me: 01/09/18 01/09/18 00:23 01:00 BUN 21 H Glucose 114 H Urine Protein 30 H Urine Urobilinogen 4.0 H Ur Leukocyte Esterase MODERATE H - Diagnostic Test Radiology reviewed: Image reviewed, Reports reviewed - EKG Interpretation by Me EKG shows normal: Sinus rhythm Rate: Normal Rhythm: NSR Discharge - Discharge Clinical Impression: Viral upper respiratory illness, COPD exacerbation Condition: Stable Disposition: HOME, SELF-CARE Instructions: Upper Respiratory Illness ([facility]), Viral Syndrome ([facility]) Additional Instructions: Follow up with your primary care provider in one to 2 days. Return to the emergency room immediately if symptoms worsen or any additional concerns. Prescriptions: Prednisone 40 mg PO DAILY #8 tablet Forms: Smoking Cessation Education Referrals: ADAMA DÍAZ MD [Primary Care Provider] - Follow up as needed
[2018-01-08] MEDS: ALBUTEROL SULFATE 0.083% NEB 2.5 MG/3 ML AMPUL NEB SCH (23:12)
--- NOTE | 2018-01-08 23:13 | RADIOLOGY REPORT (SQ) ---
EXAM DESCRIPTION: XR CHEST 2 VIEWS COMPLETED DATE/TME: 01/08/2018 22:52 CLINICAL HISTORY: 57 years Female COUGH COMPARISON: Prior study is unavailable for download. FINDINGS: The cardiomediastinal silhouette appears unremarkable. No consolidating infiltrates or pleural effusions. No pneumothorax. IMPRESSION: No acute abnormality is identified.
[2018-01-09 00:45] LABS: APPEARANCE,URINE CLOUDY; BILIRUBIN,URINE NEGATIVE (NEGATIVE); COLOR,URINE YELLOW; GLUCOSE, URINE NEGATIVE (NEGATIVE); KETONES,URINE NEGATIVE (NEGATIVE); LEUKOCYTE ESTERASE,URINE MODERATE (NEGATIVE); NITRITE,URINE NEGATIVE (NEGATIVE); PROTEIN,URINE 30 mg/dL (NEGATIVE)
[2018-01-09] MEDS: ALBUTEROL SULFATE 0.083% NEB 2.5 MG/3 ML AMPUL NEB SCH (00:51)
[2018-01-09 01:15] LABS: ABSOLUTE BASOPHILS # (AUTO) 0.1 10^3/uL (0.0-0.2); ABSOLUTE EOSINOPHILS # (AUTO) 0.2 10^3/uL (0.0-0.6); ABSOLUTE LYMPHOCYTES (AUTO) 2.7 10^3/uL (0.5-4.7); ABSOLUTE MONOCYTES (AUTO) 0.5 10^3/uL (0.1-1.4); ABSOLUTE NEUT (AUTO) 4.8 10^3/uL (1.7-8.2); BASOPHILS % (AUTO) 0.8 % (0-2); HEMATOCRIT 43.6 % (36.0-47.0); HEMOGLOBIN 14.9 g/dL (12.0-15.5); LYMPHOCYTES % (AUTO) 33.2 % (13-45); MEAN CORPUSCULAR HEMOGLOBIN 28.6 pg (27.0-33.4); MEAN CORPUSCULAR HGB CONC 34.1 g/dL (32.0-36.0); MEAN CORPUSCULAR VOLUME 84 fl (80-97); MONOCYTES % (AUTO) 5.8 % (3-13); PLATELET COUNT 166 10^3/uL (150-450); RED BLOOD COUNT 5.19 10^6/uL (3.72-5.28); RED CELL DISTRIBUTION WIDTH 13.9 % (11.5-14.0); SEGMENTED NEUTROPHILS % (AUTO) 58.2 % (42-78); TOTAL CELLS COUNTED % (AUTO) 100 %; WHITE BLOOD COUNT 8.2 10^3/uL (4.0-10.5)
[2018-01-09 01:15] LABS: A TYPE INFLUENZA AG NEGATIVE (NEGATIVE); B INFLUENZA AG NEGATIVE (NEGATIVE)
[2018-01-09 01:27] LABS: ANION GAP 9 (5-19); BLOOD UREA NITROGEN 21 mg/dL (7-20); CALCIUM 8.9 mg/dL (8.4-10.2); CARBON DIOXIDE 24 mmol/L (22-30); CHLORIDE 106 mmol/L (98-107); GLUCOSE 114 mg/dL (75-110); SODIUM 139.4 mmol/L (137-145)
[2018-01-09 01:33] LABS: POTASSIUM 4.4 mmol/L (3.6-5.0)
[2018-01-09] MEDS ORDERED: PREDNISONE 20 MG TABLET PO ONE (01:42)
[2018-01-09 02:14] VITALS: BP 122/88
--- NOTE | 2018-01-09 08:04 | EKG REPORT ---
SEVERITY:- OTHERWISE NORMAL ECG - SINUS RHYTHM V2, LEAD PLACEMENT ERROR. : Confirmed by: Surya Armando MD 09-Jan-2018 08:03:23
== END 2018-01-09 02:41 | disposition home or self-care (01) ==
LOC: ER 21:24
DX: J44.1 Chronic obstructive pulmonary disease with (acute) exacerbation (principal); J06.9 Acute upper respiratory infection, unspecified; B97.89 Other viral agents as the cause of diseases classified elsewhere; R06.02 Shortness of breath; R05 Cough; R68.83 Chills (without fever); F17.200 Nicotine dependence, unspecified, uncomplicated; Z88.0 Allergy status to penicillin
CPT/HCPCS: 93005; 94640 ×2; 99285; 36415; 87040; 87086; 85025; 87088; 80048; 81001; 87186; 87804; 71046; 93010; J7512; J7620